=== PATIENT | male | born 1980 | race Caucasian/White ===

== ENCOUNTER 2016-12-04 00:51 | Inpatient (IN) | payer OTHER ==
[~2016-12-04] VITALS: Ht 177.8 cm; Wt 79.4 kg
--- NOTE | ~2016-12-04 | DS ---
Unit #: [id number] #: [id number] Patient: MIRIAM BAILEY [id number] [address] [address] [id number] I MR#: [id number] NAME: MIRIAM BAILEY ROOM: 220 Age: 35 Sex: M Admission Date: 12/04/2016 : 1980 Discharge Date: 12/05/2016 Attending Physician: Omar Alcantara M.D. Primary Care Physician: Primary Care Physician No DISCHARGE SUMMARY DISCHARGE DIAGNOSES 1. Acute hypoglycemia episode. 2. Diabetes mellitus uncontrolled. HOSPITAL COURSE The patient is a 35-year-old man, insulin-dependent diabetic male, who was taking Tresiba 40 units subcutaneous daily and sliding scale Novolin R. On the day of admission prior to arrival, the patient noted his blood sugars to be in the 40s and 50s despite taking adequate oral fluid and remained low despite drinking 2 bottles of soda. On arrival to the emergency room, the blood sugar was noted to be 33. The patient received an amp of D50 and his blood sugar went up to 66. Throughout the night, the patient required multiple amps of D50 along with continuous IV D5 maintenance drip. Subsequently, the hypoglycemia resolved and his insulin dosage was readjusted. The patient is currently feeling well. He is having no further hypoglycemia and will be discharged home today. DISCHARGE HOME MEDICATIONS Tresiba FlexTouch 25 units subcutaneous daily; Novolin R 5 unit subcutaneous a.c. meals; Novolin R sliding scale if greater than 200, additional 2 units; if blood sugar is greater than 300, take an additional 3 units of Novolin R, and call MD. One time dose of Tresiba 10 units tonight. DISCHARGE INSTRUCTIONS The patient is to follow up with his primary care physician. The patient is to monitor his blood sugar. Return to the emergency room if hypoglycemia episodes recur. If blood sugars remain elevated, call primary care physician or come to the emergency room. Dictated by... Paras Mercado/david TD: 12/08/2016 01:08 JOB #: [id number] Unit #: [id number] #: [id number] Patient: MIRIAM BAILEY DISCHARGE SUMMARY Page 1 of 1 X X DISCHARGE SUMMARY
--- NOTE | ~2016-12-04 | A ---
[facility] Nutrition Therapy DATE: 12/04/16 Patient: MIRIAM BAILEY Physician: MEET Address: [address] [facility] Room/Bed: [address], Zip: [place] [address] Admit Date: 12/04/16 Date of : [birth year] Height: 5 10 Weight: 175 79.37 NUTRITIONAL ASSESSMENT: REASON: VERBAL RN REQUEST FOR DIET EDUCATION PT IS 35 Y.O. MALE ADMITTED FOR HYPOGLYCEMIA HT: 5'10", WT: 175# (80 KG), BMI: 25.1 RD PROVIDED WRITTEN AND VERBAL CC DIET EDUCATION. RD PROVIDED LIST OF FOODS TO AVOID/LIMIT AND FOODS TO EAT MORE OFTEN. RD EMPHASIZED IMPORTANCE OF CONSUMING 3 BALANCED MEALS + SNACKS DAILY. RD ENCOURAGED PT TO CUT BACK ON SUGAR-SWEETENED BEVERAGES. PT STATES HE ONLY CONSUMES 1-2 MEALS DAILY AND WILLING TO ADD AN EXTRA MEAL TO HIS WORKDAY (PT IS A [employer]). PT DEMONSTRATED UNDERSTANDING OF THE TOPIC. PT REPORTED NO DIET QUESTIONS AT THIS TIME. RD TO REMAIN AVAILABLE RECOMMENDATIONS: 1. ENCOURAGE COMPLIANCE OF CURRENT DIET ORDER-CC 2. CONSULT RD IF FURTHER DIET EDUCATION REQUESTED/NEEDED 3. CONTINUE TO OPTIMIZE BLOOD SUGAR CONTROL REGIMEN RD WILL F/U PER PROTOCOL Respectfully, JOSE REEDER MS, RD, LD Food and Nutritional Services [facility] cc: client file
--- NOTE | ~2016-12-04 | HP ---
Unit #: [id number] #: [id number] Patient: MIRIAM BAILEY [id number] [address] [address] [id number] MR#: [id number] NAME: MIRIAM BAILEY ROOM: [id number] Age: 35 Sex: M Admission Date: 12/04/2016 : 1980 Attending Physician: Janey Foster M.D. Primary Care Physician: Primary Care Physician No HISTORY AND PHYSICAL CHIEF COMPLAINT Hypoglycemia. HISTORY This pleasant 35-year-old insulin dependent diabetic male is admitted for hypoglycemia. Patient states that he takes Tresiba 40 units subcu daily along with sliding scale Novolin R. Yesterday felt hypoglycemic throughout the day with Accu-Cheks in the 40s and 50s despite taking adequate p.o. Did not take extra insulin, did not increase his exercise. He presented to this emergency department with a serum glucose of about 33. He was fed, with little impact on his hypoglycemia. He was given an amp of D50, and his currently Accu-Chek is 66. Labs were also notable for potassium of 2.7. He was given 40 mEq of potassium in the ER. PAST MEDICAL HISTORY 1. IDDM x3 years with previous admissions for diabetic ketoacidosis. 2. Previous history of polysubstance abuse. 3. Vasectomy. ALLERGIES To penicillin resulting in hives. HOME MEDICATIONS 1. Tresiba 40 units subcu daily. 2. Medium dose sliding scale Novolin R. The patient is not followed at this time by a physician. FAMILY HISTORY Diabetes mellitus and CAD. SOCIAL HISTORY The patient lives with his girlfriend and his mother. He smokes one pack per day of tobacco. He drinks 2-3 beers each day. Denies symptoms of withdrawal. He states that he no longer uses illicit drugs. REVIEW OF SYSTEMS Notable for hypoglycemia, some palpitations, diabetes mellitus, previous history of DKA, vasectomy, history of polysubstance abuse, tobacco abuse. All other systems were reviewed and otherwise negative. Unit #: [id number] #: [id number] Patient: MIRIAM BAILEY PHYSICAL GENERAL: Pleasant 35-year-old male, currently in no acute distress. VITAL SIGNS: Temperature 98.1, pulse 99, respirations 18, blood pressure 121/79. O2 saturation is 100% on room air. HEENT: Eyes PERRLA. Extraocular muscles are intact. Pharynx is benign with poor dentition. NECK: Supple without adenopathy or thyromegaly. CHEST: Clear. CARDIAC: Normal S1 and S2 without S3, S4 or murmur. ABDOMEN: Bowel sounds are present. No hepatosplenomegaly, tenderness or masses. EXTREMITIES: Without clubbing, cyanosis or edema. Pedal pulses are present. No ulcers on the feet. NEUROLOGIC EXAM: The patient is awake, alert, oriented. Cranial nerves are intact. Equal strength throughout. DIAGNOSTIC STUDIES LABORATORY: Admission labs - hematocrit is 45.6, normal white count, platelet count. SMA-12 - glucose 33, potassium 2.7, alk. phos. 98. ASSESSMENT 1. IDDM with hypoglycemia yesterday despite taking his usual Tresiba and sliding scale Novolin R. Is persistently hypoglycemic in the ER despite treatment. 2. Hypokalemia. 3. Tobacco use. PLANS 1. D10 drip for now and frequent Accu-Cheks. Will obtain a hemoglobin C. 2. May need to decrease Tresiba dose but will check the hemoglobin A1c. he will need a prescription, I believe, at the time of discharge as well. He did tell me that twice a week he does experience hypoglycemia. Dictated by Janey Foster M.D. TESFAYE/christine TD: 12/04/2016 05:12 JOB #: [id number] HISTORY AND PHYSICAL Page 1 of 1 X Janey Foster MD X HISTORY AND PHYSICAL
--- NOTE | ~2016-12-04 | CO ---
Unit #: [id number] #: [id number] Patient: MIRIAM BAILEY [id number] [address] [place], [place] [address] [id number] MR#: [id number] NAME: MIRIAM BAILEY ROOM: 220 Age: 35 Sex: M Admission Date: 12/04/2016 : 1980 Attending Physician: Omar Alcantara M.D. Primary Care Physician: Primary Care Physician No Consultation Date: 12/04/2016 CONSULTATION REPORT REASON FOR CONSULTATION Hypoglycemia. HISTORY OF PRESENT ILLNESS A 35-year-old male with history of type 1 diabetes mellitus for about 2 years. He has been an insulin dependent on Tresiba and if I believe was NovoLog with his meals. He does report he cannot does count carbohydrates and he is taking an insulin with his meals. Yesterday, brought into the emergency room for the having low blood sugars, lowest was 33. He tried to manage it at home, but his blood sugars continue to drop low where he came to the emergency room. He was admitted to the ICU, where he continued to have the recurrent episodes of hypoglycemia and received about 9 amps D50. I was called at that time, and also he was treated with D10. I have been asked to see the patient for further management. PAST MEDICAL HISTORY Type 1 diabetes mellitus for 3 years, history of diabetic ketoacidosis, history of polysubstance abuse. PAST SURGICAL HISTORY Vasectomy. ALLERGIES Penicillin. HOME MEDICATIONS Tresiba 40 units daily and NovoLog insulin with meals. FAMILY HISTORY Diabetes and coronary. SOCIAL HISTORY He lives with his girlfriend, smokes one pack per day, drinks 2 to 3 beers per day. He declines any illicit drugs at this point. REVIEW OF SYSTEMS Notable for recurrent hypoglycemia, otherwise unremarkable. PHYSICAL EXAMINATION GENERAL: He is lying comfortably, in no acute distress. VITAL SIGNS: Stable. Temperature 98.1, pulse 72, blood pressure 128/71. HEENT: EOMI. Pupils equally reactive to light. NECK: Supple. No thyromegaly noted. Unit #: [id number] #: [id number] Patient: MIRIAM BAILEY CHEST: Good air entry. CVS: Regular rhythm. No murmurs. ABDOMEN: Soft and nontender. Bowel sounds positive. EXTREMITIES: No edema noted. DIAGNOSTIC STUDIES LABORATORY RESULTS: Reviewed. A1c is 8.6. Accu-Chek log was reviewed. ASSESSMENT Recurrent hypoglycemia, most likely due to the overdose of the insulin or miscalculation of his carbohydrates. The patient also received a dose of octreotide. PLAN The patient's blood sugars have been improved at this time, last 3 to 4 blood sugar have been over 200. The plan is discontinue D10 and start the patient on insulin Levemir 20 units subcu b.i.d., NovoLog 1 unit for every 10 g carbohydrates, and the supplement sliding scale dose which is 1 unit for every 40 mg for blood sugars over 160. Accu-Cheks q.4. followed by a.c. and h.s. Advance diet with consistent carb. Thanks again for consultation. Dictated by... Paras Rios/david TD: 12/06/2016 11:45 JOB #: [id number] CONSULTATION REPORT Page 1 of 1 X Ko Dickson MD X CONSULTATION REPORT
[~2016-12-04 00:51] MED LIST: FOLIC ACID1 MG PO; MULTIVITAMINS1 EAC2 PO; NEXIUM PO; NOVOLIN 70100 UNITS/ SUBQ; NOVOLOG100 U/ML; NOVOLOG100 U/ML SUBQ; THIAMINE HCL100 MG PO
[2016-12-04 01:33] LABS: BASOPHIL% 0.5 % (0-2.5); EOSINOPHIL# 0.3 X10e3 (0-0.7); EOSINOPHIL% 3.9 % (0.0-7.0); HEMATOCRIT 45.6 % (38.0-50.0); HEMOGLOBIN 15.5 gm/dL (13.0-16.0); LYMPHOCYTE# 3.1 X10e3 (1.0-3.5); LYMPHOCYTE% 42.2 % (17.0-45.0); MEAN CELL VOLUME 92.4 FL (83-96); MEAN CORPUSCULAR HEMOGLOBIN 31.5 PG (28-34); MEAN CORPUSCULAR HGB CONC 34.1 g/dL (30-36); MEAN PLATELET VOLUME 7.7 FL (6.5-11.5); MONOCYTE# 0.6 X10e3 (0-1.0); MONOCYTE% 8.7 % (3.0-12.0); NEUTROPHIL# 3.3 X10e3 (1.5-7.1); NEUTROPHIL% 44.7 % (40-75); PLATELET COUNT 269 X10e3 (140-420); RED BLOOD COUNT 4.94 X10e (3.90-5.60); RED CELL DISTRIBUTION WIDTH 13.3 % (11.0-15.5); WHITE BLOOD COUNT 7.4 X10e3 (4.0-10.5)
[2016-12-04 01:34] LABS: DIFF IND NO
[2016-12-04 02:07] LABS: ALBUMIN SERUM 4.4 g/dL (3.5-5.0); BILIRUBIN, DIRECT 0.1 mg/dL (0.0-0.2); BILIRUBIN,TOTAL 0.1 mg/dL (0.2-2.0); BUN/CREATININE RATIO 8.75; CALCIUM SERUM 9.5 mg/dL (8.4-10.2); CREATININE SERUM 0.8 mg/dL (0.6-1.4); PROTEIN TOTAL SERUM 7.8 g/dL (6.0-8.3)
[2016-12-04 02:09] LABS: POTASSIUM 2.7 mmol/L (3.5-5.1)
[2016-12-04 04:36] LABS: URINE SOURCE CLEAN CATCH
[2016-12-04 04:50] LABS: URINE APPEARANCE CLEAR; URINE BILIRUBIN NEG (NEG); URINE BLOOD NEG (NEG); URINE COLOR YELLOW; URINE GLUCOSE >1000 MG/DL (NEG); URINE KETONE NEG (NEG); URINE LEUKOCYTE ESTERASE NEG (NEG); URINE NITRATE NEG (NEG); URINE PH 6.5 (5-8); URINE PROTEIN NEG (NEG); URINE SPECIFIC GRAVITY 1.021 (1.003-1.035); URINE UROBILINOGEN 0.2 MG/DL (NEG)
[2016-12-04 04:56] LABS: CULTURE INDICATED? NO
[2016-12-04 07:53] LABS: BASOPHIL% 0.5 % (0-2.5); EOSINOPHIL# 0.3 X10e3 (0-0.7); EOSINOPHIL% 4.1 % (0.0-7.0); HEMATOCRIT 40.2 % (38.0-50.0); HEMOGLOBIN 14.1 gm/dL (13.0-16.0); LYMPHOCYTE# 2.6 X10e3 (1.0-3.5); LYMPHOCYTE% 35.5 % (17.0-45.0); MEAN CORPUSCULAR HEMOGLOBIN 32.3 PG (28-34); MEAN CORPUSCULAR HGB CONC 35.1 g/dL (30-36); MEAN PLATELET VOLUME 7.7 FL (6.5-11.5); MONOCYTE# 0.6 X10e3 (0-1.0); MONOCYTE% 8.8 % (3.0-12.0); NEUTROPHIL# 3.7 X10e3 (1.5-7.1); NEUTROPHIL% 51.1 % (40-75); PLATELET COUNT 209 X10e3 (140-420); RED BLOOD COUNT 4.36 X10e (3.90-5.60); RED CELL DISTRIBUTION WIDTH 13.1 % (11.0-15.5); WHITE BLOOD COUNT 7.3 X10e3 (4.0-10.5)
[2016-12-04 07:55] LABS: DIFF IND NO
[2016-12-04 08:03] LABS: CALCIUM SERUM 8.9 mg/dL (8.4-10.2); CREATININE SERUM 0.5 mg/dL (0.6-1.4); GLOM FILT RATE Estimated 139.5 mL/min (>60); MAGNESIUM 1.2 mg/dL (1.6-3.0); POTASSIUM 3.5 mmol/L (3.5-5.1)
[2016-12-04] MEDS ORDERED: TRESIBA FL100 UNIT/1 SUBQ (09:01)
[2016-12-04] MEDS ORDERED: NOVOLOG100 UNITS/ SUBQ (09:04)
[2016-12-05 05:33] LABS: BASOPHIL% 0.7 % (0-2.5); EOSINOPHIL# 0.3 X10e3 (0-0.7); EOSINOPHIL% 4.9 % (0.0-7.0); HEMOGLOBIN 14.4 gm/dL (13.0-16.0); LYMPHOCYTE# 2.3 X10e3 (1.0-3.5); LYMPHOCYTE% 40.7 % (17.0-45.0); MEAN CELL VOLUME 92.7 FL (83-96); MEAN CORPUSCULAR HEMOGLOBIN 31.8 PG (28-34); MEAN CORPUSCULAR HGB CONC 34.3 g/dL (30-36); MONOCYTE# 0.6 X10e3 (0-1.0); MONOCYTE% 9.8 % (3.0-12.0); NEUTROPHIL# 2.5 X10e3 (1.5-7.1); NEUTROPHIL% 43.9 % (40-75); PLATELET COUNT 207 X10e3 (140-420); RED BLOOD COUNT 4.53 X10e (3.90-5.60); RED CELL DISTRIBUTION WIDTH 13.2 % (11.0-15.5); WHITE BLOOD COUNT 5.8 X10e3 (4.0-10.5)
[2016-12-05 05:49] LABS: DIFF IND NO
[2016-12-05 07:12] LABS: CREATININE SERUM 0.6 mg/dL (0.6-1.4); GLOM FILT RATE Estimated 129.4 mL/min (>60); MAGNESIUM 1.7 mg/dL (1.6-3.0); POTASSIUM 4.4 mmol/L (3.5-5.1)
[2016-12-05] MEDS ORDERED: NOVOLIN R100 UNITS/ SUBQ ×2 (15:34→15:36)
[2016-12-05] MEDS ORDERED: TRESIBA FL100 UNIT/1 SUBQ (15:37)
== END 2016-12-05 16:22 | disposition home or self-care (01) | DRG 639 ==
LOC: CED 00:51 → CEDOF 03:10 → CED 03:20 → CICCU2 03:20 → CEDOF 06:48 → CICCU2 08:24 → C2A 12-05 13:41
PROVIDERS: Emergency Medicine; Internal Medicine
DX: E10.649 Type 1 diabetes mellitus with hypoglycemia without coma (principal); E87.6 Hypokalemia; F17.200 Nicotine dependence, unspecified, uncomplicated; Z79.4 Long term (current) use of insulin; Z88.0 Allergy status to penicillin; Z83.3 Family history of diabetes mellitus; Z82.49 Family history of ischemic heart disease and other diseases of the circulatory system; Z98.52 Vasectomy status
CPT/HCPCS: 36415; 80048; 80076; 81003; 82947; 83036; 83735; 85025; 96374; 99285; J1610; J1815; J2354; J3475